=== PATIENT | male | born 1980 | race African-American/Black ===

== ENCOUNTER 2019-05-14 14:39 | Emergency (ER) | payer MEDICAID ==
[~2019-05-14] VITALS: Ht 180.3 cm; Wt 79.4 kg
[2019-05-14 15:05] VITALS: BP 133/94
== END 2019-05-14 16:40 | disposition home or self-care (01) ==
LOC: ER 14:47
DX: S46.912A Strain of unspecified muscle, fascia and tendon at shoulder and upper arm level, left arm, initial encounter (principal); Z91.018 Allergy to other foods; Z91.013 Allergy to seafood; V43.62XA Car passenger injured in collision with other type car in traffic accident, initial encounter; Y93.89 Activity, other specified; Y99.8 Other external cause status; Y92.410 Unspecified street and highway as the place of occurrence of the external cause
CPT/HCPCS: 73030